=== PATIENT | female | born 1990 | race African-American/Black ===

== ENCOUNTER 2017-10-27 16:43 | Emergency (ER) | payer SELFPAY ==
[2017-10-27] MEDS ORDERED: Amoxicillin/Clavulanate TAB* 500 MG PO ONE (17:39)
--- NOTE | 2017-10-27 17:45 | ED ---
Throat Pain/Nasal Congestion - HPI Summary HPI Summary: 27-year-old female presents with left lower dental pain for the past week. She states that a month ago she had pain and was placed on antibiotics. She states she has not followed up with a dentist since. has history of recurrent abscesses at that tooth. She states the once abscesses started to go down she starts to feel like her lymph nodes in her axillary and in her neck swell. She also states she gets some numbness and tingling into left arm. no weakness. no midline neck pain or stiffness. no headache. no fevers. No chest pain or shortness of breath. no difficulty swallowing. She has no medical conditions. She states she can take amoxicillin with no symptoms. - History of Current Complaint Chief Complaint: EDDentalPain Time Seen by Provider: 10/27/17 17:05 - Allergies/Home Medications Allergies/Adverse Reactions: Allergies Allergy/AdvReac Type Severity Reaction Status Date / Time Penicillins Allergy Itching Verified 10/27/17 16:51 tramadol Allergy Headache Verified 10/27/17 16:51 scented lotions Allergy Itching Uncoded 01/06/15 02:18 PMH/Surg Hx/FS Hx/Imm Hx Endocrine/Hematology History: Denies: Hx Anticoagulant Therapy Cardiovascular History: Reports: Other Cardiovascular Problems/Disorders - MITRAL VALVE PROLAPSE Infectious Disease History: No Infectious Disease History: Denies: Traveled Outside the [place] in Last 30 Days - Family History Known Family History: Positive: Diabetes - Social History Alcohol Use: Occasionally Substance Use Type: Reports: None Smoking Status (MU): Light Every Day Tobacco Smoker Review of Systems Negative: Fever Positive: Dental Pain Negative: Chest Pain Negative: Shortness Of Breath All Other Systems Reviewed And Are Negative: Yes Physical Exam Triage Information Reviewed: Yes Vital Signs On Initial Exam: Initial Vitals Temp Pulse Resp BP Pulse Ox 97.6 F 80 16 121/76 100 10/27/17 16:48 10/27/17 16:48 10/27/17 16:48 10/27/17 16:48 10/27/17 16:48 Vital Signs Reviewed: Yes Appearance: Positive: Well-Appearing Skin: Positive: Warm, Dry Head/Face: Positive: Normal Head/Face Inspection Eyes: Positive: Normal, EOMI, YOUNG, Conjunctiva Clear ENT: Positive: Normal ENT inspection, Pharynx normal, TMs normal Dental: Positive: Percussion Tenderness @ - 19, Abscess @ - 19 Neck: Positive: Tenderness @ - left side cervical, Enlarged Nodes @ - left cervical, Other: - no axillary lymph nodes felt Respiratory/Lung Sounds: Positive: Clear to Auscultation, Breath Sounds Present Cardiovascular: Positive: Normal, RRR Musculoskeletal: Positive: Normal Neurological: Positive: Normal Psychiatric: Positive: Normal Diagnostics - Vital Signs Vital Signs Temp Pulse Resp BP Pulse Ox 10/27/17 16:48 97.6 F 80 16 121/76 100 - Laboratory Lab Statement: Any lab studies that have been ordered have been reviewed, and results considered in the medical decision making process. EENT Course/Dx - Course Course Of Treatment: 27-year-old female presents with left lower dental pain for the past week. She states that a month ago she had pain and was placed on antibiotics. She states she has not followed up with a dentist since. has history of recurrent abscesses at that tooth. She states the once abscesses started to go down she starts to feel like her lymph nodes in her axillary and in her neck swell. She also states she gets some numbness and tingling into left arm. no weakness. no midline neck pain or stiffness. no headache. no fevers. No chest pain or shortness of breath. no difficulty swallowing. She has no medical conditions. She states she can take amoxicillin with no symptoms. on exam tenderness tooth 19 with abscess. tender cervical lymphandenopathy. will treat with augmentin. told to follow up with denist patient understand and agrees with plan. - Differential Diagnoses Differential Diagnoses: Dental Abscess, Dental Caries, Fractured Tooth - Diagnoses Provider Diagnoses: Dental infection Discharge - Sign-Out/Discharge Documenting (check all that apply): Discharge/Admit/Transfer - Discharge Plan Condition: Good Disposition: HOME Prescriptions: Amoxicillin/Clavulanate TAB* [Augmentin TAB 500 mg*] 500 mg PO BID #19 tab Chlorhexidine MOUTHWASH 0.12%* [Peridex Mouth Wash 0.12%*] 15 ml SWISH SPIT DAILY #1 oral.[email or web address] Patient Education Materials: Dental Abscess (ED) Referrals: [facility] [place] [facility]YSICIAN REFERRAL [Outside] Additional Instructions: Take antibiotic 2 times a day for 10 days use clorhexidine 15ml after brushing teeth daily Use ibuprofen or tyenlol for pain every [address] heat on side of jaw and massage area establish care with primary Follow up with dentist as soon as possible Return to ED if develop shortness of breath, fever, or difficulty swallowing. - Billing Disposition and Condition Condition: GOOD Disposition: Home Images - Images Dental: 1 - abscess
[2017-10-27 18:39] VITALS: BP 152/63
== END 2017-10-27 18:37 | disposition home or self-care (01) ==
LOC: ED 16:43
DX: K04.7 Periapical abscess without sinus (principal); Z72.0 Tobacco use; I34.1 Nonrheumatic mitral (valve) prolapse; Z88.0 Allergy status to penicillin
CPT/HCPCS: 99282; A9270-GY

== ENCOUNTER 2018-07-25 14:30 | Emergency (ER) | payer SELFPAY ==
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
[2018-07-25 16:58] LABS: ABS Basophils 0.1 10^3/ul (0-0.2); ABS Eosinophils 0.2 10^3/ul (0-0.6); ABS Monocytes 0.6 10^3/ul (0-0.8); ABS Neutrophils 3.9 10^3/ul (1.5-7.7); ABS Nucleated RBC 0 10^3/ul; ALT 22 U/L (7-52); AST 15 U/L (13-39); Albumin 4.4 g/dL (3.2-5.2); Albumin/Globulin Ratio 1.3 (1-3); Alkaline Phosphatase 66 U/L (34-104); Anion Gap 5 mmol/L (2-11); BUN/Creatinine Ratio 14.7 (8-20); Blood Urea Nitrogen 11 mg/dL (6-24); C Reactive Protein < 1.00 mg/L (<8.01); CO2 Carbon Dioxide 25 mmol/L (22-32); Calcium 9.5 mg/dL (8.6-10.3); Chloride 106 mmol/L (101-111); EGFR Non-African American 93.4 (>60); Globulin 3.4 g/dL (2-4); Glucose 96 mg/dL (70-100); Hematocrit 42 % (33-41); Hemoglobin 13.2 g/dL (12.0-16.0); Lymphocyte % 38.8 %; Mean Corpuscular HGB Conc 32 g/dL (31-36); Mean Corpuscular Hemoglobin 23 pg (27-31); Mean Corpuscular Volume 71 fL (80-97); Mean Platelet Volume 9.1 fL (7.4-10.4); Nucleated Red Blood Cells % 0.1; Platelet Count 235 10^3/uL (150-450); Potassium 4.3 mmol/L (3.5-5.0); Red Blood Count 5.85 10^6 /uL (3.70-4.87); Red Cell Distribution Width 15 % (10.5-15); Sodium 136 mmol/L (135-145); Total Protein 7.8 g/dL (6.4-8.9); White Blood Count 7.8 10^3/uL (3.5-10.8)
[2018-07-25 17:04] LABS: HCG Pregnancy < 0.60 mIU/mL
[2018-07-25 17:28] VITALS: BP 129/86
== END 2018-07-25 17:25 | disposition home or self-care (01) ==
LOC: ED 14:30
DX: M54.12 Radiculopathy, cervical region (principal); F17.210 Nicotine dependence, cigarettes, uncomplicated; Z88.0 Allergy status to penicillin
CPT/HCPCS: 36415; 71046; 72050; 80053; 83605; 84484; 84702; 85025; 85379; 86140; 93005; 99282

== ENCOUNTER 2019-06-06 13:55 | Emergency (ER) | payer OTHER ==
[2019-06-06 14:35] LABS: ABS Eosinophils 0.2 10^3/ul (0-0.6); ABS Lymphocytes 2.2 10^3/ul (1.0-4.8); ABS Monocytes 0.3 10^3/ul (0-0.8); ABS Neutrophils 2.9 10^3/ul (1.5-7.7); Eosinophil % 3.1 %; Hematocrit 39 % (35-47); Hemoglobin 12.4 g/dL (12.0-16.0); Mean Corpuscular HGB Conc 32 g/dL (31-36); Mean Corpuscular Hemoglobin 23 pg (27-31); Mean Corpuscular Volume 71 fL (80-97); Mean Platelet Volume 9.1 fL (7.4-10.4); Platelet Count 212 10^3/uL (150-450); Red Blood Count 5.41 10^6 /uL (3.70-4.87); Red Cell Distribution Width 15 % (10-15); White Blood Count 5.6 10^3/uL (3.5-10.8)
[2019-06-06 14:38] LABS: INR 1.15 (0.82-1.09)
--- NOTE | 2019-06-06 14:46 | ED ---
Complex/Multi-Sys Presentation - HPI Summary HPI Summary: Patient is a 29 y/o F presenting to [facility] with complaints of chest pain, palpitations, SOB, cough, and cold sweats. She reports that chest tightness/ burning onset 4-5 days ago. CP was initially intermittent but it became more persistent and severe two days ago. She also notes a cough that has progressively worsened. Patient has been experiencing cold sweats at night and notes that she felt SOB at 0300 this morning, 06/06/19. Patient states that she was planning to be evaluated for her Sx tomorrow, but when taking a family member to work, she experienced a chest "thumping" sensation. Patient reports similar Sx with previous episodes of bronchitis, noting that she will get bronchitis around three times each year. Patient notes that she has been getting nauseous with food consumption but denies vomiting. No calf pain/ swelling noted. Hx of blood clots reported. She notes that she flew to [place] last month. Patient has been taking ibuprofen and inhaler for her Sx. Patient denies Hx of asthma. She denies daily medications. Tramadol and penicillin allergy noted, patient states that she develops hives with penicillin. She is a daily smoker of around 1/4 a pack, drinks alcohol occasionally, and denies substance abuse. She has not gotten the flu shot this season. Home medications and allergies are reviewed. - History Of Current Complaint Chief Complaint: EDChestPainROMI Time Seen by Provider: 06/06/19 14:16 Hx Obtained From: Patient Onset/Duration: Lasting Days, Still Present Timing: Constant Severity Currently: Severe Severity Initially: Moderate Location: Pain At: - chest Aggravating Factor(s): food consumption aggravates nausea Associated Signs And Symptoms: Positive: SOB, Cough, Chest Pain, Palpitations, Nausea, Other - positive - cold sweats; negative - calf pain. Negative: Edema, Vomiting - Allergies/Home Medications Allergies/Adverse Reactions: Allergies Allergy/AdvReac Type Severity Reaction Status Date / Time Penicillins Allergy Itching Verified 06/06/19 14:17 tramadol Allergy Headache Verified 06/06/19 14:17 scented lotions Allergy Itching Uncoded 06/06/19 14:17 PMH/Surg Hx/FS Hx/Imm Hx Endocrine/Hematology History: Denies: Hx Anticoagulant Therapy Cardiovascular History: Reports: Other Cardiovascular Problems/Disorders - MITRAL VALVE PROLAPSE, palpitations Sensory History: Denies: Hx Legally Blind, Hx Deafness Opthamlomology History: Denies: Hx Legally Blind Neurological History: Denies: Hx Dementia - Immunization History Date of Influenza Vaccine: no Infectious Disease History: No Infectious Disease History: Denies: Traveled Outside the [place] in Last 30 Days - Family History Known Family History: Positive: Diabetes - Social History Alcohol Use: Occasionally Hx Substance Use: No Substance Use Type: Reports: None Hx Tobacco Use: Yes Smoking Status (MU): Light Every Day Tobacco Smoker Review of Systems Positive: Skin Diaphoresis - cold sweats Positive: Palpitations, Chest Pain Positive: Shortness Of Breath, Cough Positive: Nausea. Negative: Vomiting Negative: Myalgia - calves , Edema - calves All Other Systems Reviewed And Are Negative: Yes Physical Exam - Summary Physical Exam Summary: Constitutional: Well-developed, Well-nourished, Alert. (-) Distressed Skin: Warm, Dry HENT: Normocephalic; Atraumatic Eyes: Conjunctiva normal Neck: Musculoskeletal ROM normal neck. (-) JVD, (-) Stridor, (-) Tracheal deviation Cardio: Rhythm regular, rate normal, Heart sounds normal; Intact distal pulses; Radial pulses are 2+ and symmetric. (-) Murmur Pulmonary/Chest wall: Effort normal. (-) Respiratory distress, (-) Wheezes, (-) Rales Abd: Soft, (-) tenderness, (-) Distension, (-) Guarding, (-) Rebound Musculoskeletal: (-) Edema Lymph: (-) Cervical adenopathy Neuro: Alert, Oriented x3 Psych: Mood and affect Normal Triage Information Reviewed: Yes Vital Signs On Initial Exam: Initial Vitals Temp Pulse Resp BP Pulse Ox 97.7 F 77 18 125/85 100 06/06/19 14:03 06/06/19 14:03 06/06/19 14:03 06/06/19 14:03 06/06/19 14:03 Vital Signs Reviewed: Yes Procedures - Sedation Patient Received Moderate/Deep Sedation with Procedure: No Diagnostics - Vital Signs Vital Signs Temp Pulse Resp BP Pulse Ox 06/06/19 14:03 97.7 F 77 18 125/85 100 - Laboratory Lab Results: Lab Results 06/06/19 Range/Units 14:26 WBC 5.6 (3.5-10.8) 10^3/uL RBC 5.41 H (3.70-4.87) 10^6 /uL Hgb 12.4 (12.0-16.0) g/dL Hct 39 (35-47) % MCV 71 L (80-97) fL MCH 23 L (27-31) pg MCHC 32 (31-36) g/dL RDW 15 (10-15) % Plt Count 212 (150-450) 10^3/uL MPV 9.1 (7.4-10.4) fL Neut % (Auto) 51.4 % Lymph % (Auto) 39.0 % Sampson % (Auto) 5.8 % Eos % (Auto) 3.1 % Baso % (Auto) 0.7 % Absolute Neuts (auto) 2.9 (1.5-7.7) 10^3/ul Absolute Lymphs (auto) 2.2 (1.0-4.8) 10^3/ul Absolute Monos (auto) 0.3 (0-0.8) 10^3/ul Absolute Eos (auto) 0.2 (0-0.6) 10^3/ul Absolute Basos (auto) 0.0 (0-0.2) 10^3/ul Absolute Nucleated RBC 0.0 10^3/ul Nucleated RBC % 0.0 Result Diagrams: 06/06/19 14:26 06/06/19 14:26 Lab Statement: Any lab studies that have been ordered have been reviewed, and results considered in the medical decision making process. - Radiology CXR Radiology Interpretation Completed By: Radiologist Summary of Radiographic Findings: IMPRESSION: NO EVIDENCE FOR ACTIVE CARDIOPULMONARY DISEASE. THIS REPORT WAS REVIEWED BY ED PHYSICIAN. - EKG 1358 Cardiac Rate: NL - rate of 79 BPM EKG Rhythm: Sinus Rhythm Summary of EKG Findings: EKG showed NSR with rate of 79 BPM, no STEMI. ED physician has reviewed and interpreted this EKG. Complex Multi-Symp Course/Dx Course Of Treatment: Patient is here with chest pain that started on Tuesday. Patient's pain started after eating spicy foods. Patient does have URI type symptoms. Patient could have the flu but she is out of the treatment window. Patient had an EKG patient evidence of ischemia. Patient chest x-ray for pneumonia. Patient had blood Performa showed a normal troponin and normal CBC. Patient is likely suffering from a viral syndrome possibly exacerbated by gastritis. Patient was started on omeprazole as a trial. - Diagnoses Provider Diagnoses: Cough, Chest pain, GERD (gastroesophageal reflux disease) Discharge ED - Sign-Out/Discharge Documenting (check all that apply): Patient Departure - discharge - Discharge Plan Condition: Stable Disposition: HOME Prescriptions: Omeprazole 20 mg PO QAM 14 Days #14 capsule. Patient Education Materials: Gastroesophageal Reflux Disease (ED), Acute Cough (ED) Referrals: [facility] [Outside] - 3 Days Additional Instructions: TAKE YOUR ACID REFLUX MEDICATIONS PRESCRIBED. FOLLOW UP WITH YOUR PRIMARY CARE PHYSICIAN. PLEASE RETURN TO ED FOR SEVERE COUGH, FEVER, OR ANY OTHER CONCERNING SYMPTOMS. - Billing Disposition and Condition Condition: STABLE Disposition: Home - Attestation Statements Document Initiated by Lul: Yes Documenting Scribe: FELICITSA RAHMAN Provider For Whom Lul is Documenting (Include Credential): ROLAND SCHROEDER MD Scribe Attestation: FELICITAS Richardson, scribed for ROLAND SCHROEDER MD on 06/06/19 at 1617. Scribe Documentation Reviewed: Yes Provider Attestation: The documentation as recorded by the FELICITAS steven accurately reflects the service I personally performed and the decisions made by , ROLAND SCHROEDER MD Status of Scribe Document: Viewed
[2019-06-06 14:53] LABS: Albumin 4.4 g/dL (3.2-5.2); Albumin/Globulin Ratio 1.4 (1-3); BUN/Creatinine Ratio 15.9 (8-20); Calcium 9.4 mg/dL (8.6-10.3); EGFR African American 123.5 (>60); EGFR Non-African American 102.1 (>60); Globulin 3.1 g/dL (2-4); Potassium 3.5 mmol/L (3.5-5.0); Total Bilirubin 0.3 mg/dL (0.2-1.0); Total Protein 7.5 g/dL (6.4-8.9)
[2019-06-06 15:21] VITALS: BP 113/69
== END 2019-06-06 15:20 | disposition home or self-care (01) ==
LOC: ED 13:55
DX: R07.9 Chest pain, unspecified (principal); K21.9 Gastro-esophageal reflux disease without esophagitis; R05 Cough; R00.2 Palpitations; R06.02 Shortness of breath; R11.0 Nausea; Z88.0 Allergy status to penicillin; F17.210 Nicotine dependence, cigarettes, uncomplicated
CPT/HCPCS: 36415; 71046; 80053; 84484; 85025; 85610; 93005; 99283